=== PATIENT | male | born 1965 | race Caucasian/White ===

== ENCOUNTER 2020-09-20 17:11 | Emergency (ER) | payer OTHER, SELFPAY ==
[2020-09-20 17:22] VITALS: BP 164/92; PULSE 80; RESP 14; TEMP 37.4; O2SAT 97; BMI 44.4
--- NOTE | 2020-09-20 17:33 | XR_ITS ---
WS: [id number] Exam: XR chest 1V portable [id number] Date/Time of Exam: 09/20/2020 5:51 PM Reason For Exam: syncope No priors. The lungs appear to be fully inflated and clear. Mild cardiac enlargement. The mediastinum and bony t horax are unremarkable. XR/XR chest 1V portable [id number] IMPRESSION: 1. Mild cardiac enlargement. 2. No acute process.
--- NOTE | 2020-09-20 17:46 | ED_ITS ---
HPI - COVID General: Chief Complaint: COVID symptoms Stated Complaint: covid symptoms Time Seen by Provider: 09/20/20 17:32 Triage information: Has fever, cough or shortness of breath . Exposure to COVID + person last 14 days History of Present Illness: HPI Narrative: 55-year-old male patient presents to the emergency department with chest pain, recent positive Covid test. He has history of diabetes, hypertension, hyperlipidemia. Primary care providers [facility] here in [place]. He reports Covid symptoms x8 days, onset of chest pain yesterday. CP present with and without cough. Reports cough makes it worse. Reports continued fever, low-grade. Documented temperature 100.4. He reports nausea. Reports chest pain is located in the center of his chest. Reports cough is somewhat productive. MD complaint: known COVID positive Prior covid testing: yes, results known ([facility], positive results) Prior testing date: 09/16/20 COVID 19 common symptoms: positive fever(s), chills, cough, productive cough, dyspnea, fatigue, headache(s), loss of sense of smell and/or taste, nasal congestion and nausea; negative throat pain or vomiting COVID 19 other sytmptoms: positive chest pressure and chest pain; negative confusion Onset (ago): day(s) (2) Pertinent comorbid conditions: diabetes, hypertension and obesity Treatment prior to arrival: other (Gabapentin) COVID Results: No Data to Display Review of Systems General: Reports: 10 or more systems reviewed and unremarkable except in HPI and below Const: Reports: fever(s), chills, change in appetite, fatigue and malaise Eyes: Denies: blurry vision or eye redness ENMT: Reports: nasal congestion; Denies: throat pain, dental pain or disequilibrium Card: Reports: chest pain and dyspnea on exertion Resp: Reports: dyspnea, productive cough and chest congestion GI: Reports: nausea; Denies: vomiting or pain on defecation : Denies: difficulty urinating, dysuria, nocturia or urinary incontinence Musc: Denies: neck pain or back pain Skin/Breast: Denies: rash or pruritus Neuro: Reports: headache(s); Denies: difficulty walking or confusion Srinath/Lymph: Denies: easy bruising Physical Exam Const: COMMON NORMALS: no acute distress, patient oriented x3 and alert GENERAL APPEARANCE: cooperative, well hydrated and other (Appears not feeling well) NUTRITIONAL APPEARANCE: overweight ORIENTATION/CONSCIOUSNESS: Yes awake, Yes oriented to person, Yes oriented to place and Yes oriented to time HENMT: COMMON NORMALS: normocephalic, Normal external nose present and moist oral mucous membranes HEAD & SCALP: normocephalic NOSE: Normal external nose present Eye: COMMON NORMALS: Equal, round and reactive pupils present and EOMs intact bilaterally GENERAL EYE: appearance normal, both eyes and all related structures PUPIL: Yes Equal, round and reactive pupils present Neck/C-Spine: COMMON NORMALS: full ROM and no lymphadenopathy GENERAL: Yes normal visual inspection and Yes trachea midline CERVICAL SPINE: Yes cervical ROM normal Lymph: LYMPHATIC: no lymphadenopathy noted Chest: COMMONS NORMALS: normal inspection of the chest Resp: COMMON NORMALS: normal respiratory effort and clear to auscultation bilaterally AUSCULTATION: clear to auscultation bilaterally Cardio: COMMON NORMALS: regular rhythm, S1 normal heart sound present, S2 normal heart sound present and Peripheral pulses 2+ throughout RHYTHM: regular rhythm HEART SOUNDS: S1 normal heart sound present and S2 normal heart sound present PERIPHERAL PULSES: Peripheral pulses 2+ throughout GI: COMMON NORMALS: Normal to inspection, nondistended, normoactive bowel sounds present, Soft to palpation and non-tender INSPECTION: Yes normal to inspection PALPATION: Yes Soft to palpation : COMMON NORMALS: Yes no CVA tenderness BLADDER/KIDNEY EXAM: Yes no CVA tenderness Back/Pelvis: COMMON NORMALS: no CVA tenderness and thoracic and lumbar spine normal to inspection Extremity: COMMON NORMALS: normal to inspection and capillary refill normal Neuro: COMMON NORMALS: patient oriented x3 and no focal motor deficits SENSORIUM/ORIENTATION: Yes alert, Yes oriented to person, Yes oriented to place and Yes oriented to time Psych: COMMON NORMALS: mental status grossly normal, Normal thought process present and cooperative ACTIVITY/MOTOR BEHAVIOR: Yes appropriate eye contact THOUGHT PROCESS: Normal thought process present Skin: COMMON NORMALS: no rashes or lesions noted and turgor normal GENERAL SKIN EXAM: no rashes or lesions noted and turgor normal Course Vital Signs: Vital signs: Vital Signs Temperature 99.4 F 09/20/20 17:22 Pulse Rate 77 09/20/20 20:02 Respiratory Rate 15 09/20/20 20:02 Blood Pressure 162/99 11/16/20 20:02 Pulse Oximetry 93 09/20/20 20:02 MDM - COVID Differential Diagnosis: Differential diagnosis: Likely COVID 19, pulmonary embolism and NSTEMI/STEMI Lab Data: Labs: Lab Results 09/20/20 09/20/20 09/20/20 Range/Units 18:08 18:08 18:08 WBC 6.3 (4.0-10.0) 10^3/ uL RBC 5.46 H (4.1-5.3) 10^6/u L Hgb 14.5 (11.7-16.6) g/dL Hct 45.0 (42.0-52.0) % MCV 82.4 (80-94) fL MCH 26.6 L (28.0-34.0) pg MCHC 32.2 (30.0-36.0) g/dL RDW 14.2 (12.1-15.1) % Plt Count 277 (130-400) 10^3/c mm MPV 9.1 (7.4-10.4) fL Neut % (Auto) 51.0 % Lymph % (Auto) 38.6 % Harmon % (Auto) 8.4 % Eos % (Auto) 1.0 % Baso % (Auto) 0.5 % Neut # (Auto) 3.22 (1.8-7.7) 10^3/u L Lymph # (Auto) 2.4 (0.8-4.8) 10^3/u L Harmon # (Auto) 0.5 (0.2-0.9) 10^3/u L Eos # (Auto) 0.1 (0.0-0.8) 10^3/u L Baso # (Auto) 0.0 (0.0-0.1) 10^3/u L Nucleated RBC % (a uto) 0 % Nucleated RBCs # 0.0 /100WBC D-Dimer 0.43 (0-0.59) ug/mIFE U Sodium 139 (136-145) mmol/L Potassium 3.4 L (3.5-5.1) mmol/L Chloride 99 (98-107) mmol/L Carbon Dioxide 29 (22-29) mmol/L Anion Gap 14.4 (5-19) BUN 13 (6-20) mg/dL Creatinine 0.9 (0.7-1.2) mg/dL GFR Calculation 87.9 L (90-130) mL/min Glucose 110 (65-115) mg/dL Calculated Osmolal ity 289 (285-295) mOsm/k g Lactate (0.5-2.2) mmol/L Calcium 9.5 (8.5-10.5) mg/dL Total Bilirubin 0.3 (0.15-1.2) mg/dL AST 35 (0-40) U/L ALT 46 H (0-41) U/L Alkaline Phosphata se 121 (40-130) IU/L Troponin T Gen 5 n g/L (0-15) ng/L Total Protein 8.1 (6.6-8.7) g/dL Albumin 4.8 (3.5-5.2) g/dL Globulin 3.3 (1.3-4.6) g/dL 09/20/20 09/20/20 Range/Units 18:08 18:08 WBC (4.0-10.0) 10^3/ uL RBC (4.1-5.3) 10^6/u L Hgb (11.7-16.6) g/dL Hct (42.0-52.0) % MCV (80-94) fL MCH (28.0-34.0) pg MCHC (30.0-36.0) g/dL RDW (12.1-15.1) % Plt Count (130-400) 10^3/c mm MPV (7.4-10.4) fL Neut % (Auto) % Lymph % (Auto) % Harmon % (Auto) % Eos % (Auto) % Baso % (Auto) % Neut # (Auto) (1.8-7.7) 10^3/u L Lymph # (Auto) (0.8-4.8) 10^3/u L Harmon # (Auto) (0.2-0.9) 10^3/u L Eos # (Auto) (0.0-0.8) 10^3/u L Baso # (Auto) (0.0-0.1) 10^3/u L Nucleated RBC % (a uto) % Nucleated RBCs # /100WBC D-Dimer (0-0.59) ug/mIFE U Sodium (136-145) mmol/L Potassium (3.5-5.1) mmol/L Chloride (98-107) mmol/L Carbon Dioxide (22-29) mmol/L Anion Gap (5-19) BUN (6-20) mg/dL Creatinine (0.7-1.2) mg/dL GFR Calculation (90-130) mL/min Glucose (65-115) mg/dL Calculated Osmolal ity (285-295) mOsm/k g Lactate 1.1 (0.5-2.2) mmol/L Calcium (8.5-10.5) mg/dL Total Bilirubin (0.15-1.2) mg/dL AST (0-40) U/L ALT (0-41) U/L Alkaline Phosphata se (40-130) IU/L Troponin T Gen 5 n g/L 15 (0-15) ng/L Total Protein (6.6-8.7) g/dL Albumin (3.5-5.2) g/dL Globulin (1.3-4.6) g/dL Imaging Data: CXR: My impression: Questionable bilateral consolidation consistent with COVID-19 findings. Radiology interpretation pending. EKG Data: EKG 1: EKG interpretation date: 09/20/20 EKG interpretation time: 17:45 Computer generated interpretation: Sinus rhythm with sinus arrhythmia, nonspecific ST and T wave abnormality, borderline ECG COVID Results: No Data to Display Discharge Plan Discharge Patient Disposition: Home Clinical Impression: Bronchitis, COVID-19 virus infection Condition: Stable Prescriptions: No Action Flexeril 10 mg Tablet 10 mg PO PRN RF: 0 Lipitor 80 mg Tablet 40 mg PO QPM RF: 0 Chlorpheniramine Allergy 4 mg Tablet 4 mg PO QID PRN (Reason: Allergy Symptoms) RF: 0 Lamictal 200 mg Tablet 400 mg PO QAM RF: 0 metoprolol tartrate 100 mg Tablet 150 mg PO BID RF: 0 amlodipine 10 mg Tablet 10 mg PO BID RF: 0 metformin 1,000 mg Tablet 500 mg PO BID RF: 0 ibuprofen 200 mg Tablet 600 mg PO PRN RF: 0 gabapentin 300 mg Capsule 300 mg PO TID RF: 0 hydrochlorothiazide 25 mg Tablet 25 mg PO DAILY RF: 0 losartan 100 mg Tablet 100 mg PO DAILY RF: 0 Seroquel 400 mg Tablet 400 mg PO BEDTIME RF: 0 Vitamin D3 50 mcg (2,000 unit) Capsule 50 mcg PO DAILY RF: 0 empagliflozin 25 mg Tablet 12.5 mg PO QAM RF: 0 glipizide 10 mg PO BID RF: 0 Discharge Orders: Discharge Order (Routine); Ordered 09/20/20 Ordered By: Frieda Starks Referrals: Willy Marie [Primary Care Provider] - Discharge Diet: Usual diet Discharge Activity: Limit activity as instructed Patient Instructions: Acute Bronchitis (ED), Viral Syndrome (ED) Activity Restrictions/Additional Instructions: Monitor your oxygen level, home oxygen sensor has been provided, normal oxygen levels 92 to 100% If oxygen level falls 90 to 91% or lower, you will need to return to the emergency department You are to rest for the next several days, remain at home and quarantine. Avoid exertional activity. If you develop worsening chest pain, increased shortness of breath, difficulty catching your breath, return to the emergency department Continue Tylenol as needed for pain/fever Push fluids as your body will require more fluid intake due to fever and viral illness Coding Level of Care Code ED Crm Coordinator for Leticia Fwd Exam Comprehensive
[2020-09-20 17:47] VITALS: PULSE 79; RESP 20; O2SAT 96
[2020-09-20] MEDS: acetaminophen 500 mg Tablet 1000 MG PO (17:57)
[2020-09-20 18:17] LABS: Basophils % 0.5 %; Eosinophils # 0.1 10^3/uL (0.0-0.8); Hemoglobin 14.5 g/dL (11.7-16.6); Lymphocytes # 2.4 10^3/uL (0.8-4.8); Lymphocytes % 38.6 %; Mean Corpuscular HGB Conc 32.2 g/dL (30.0-36.0); Mean Corpuscular Hemoglobin 26.6 pg (28.0-34.0); Mean Corpuscular Volume 82.4 fL (80-94); Mean Platelet Volume 9.1 fL (7.4-10.4); Monocytes # 0.5 10^3/uL (0.2-0.9); Monocytes % 8.4 %; Neutrophils # 3.22 10^3/uL (1.8-7.7); Nucleated Red Blood Cells % 0 %; Platelet Count 277 10^3/cmm (130-400); Red Blood Count 5.46 10^6/uL (4.1-5.3); Red Cell Distribution Width 14.2 % (12.1-15.1); White Blood Count 6.3 10^3/uL (4.0-10.0)
[2020-09-20 18:30] LABS: D Dimer 0.43 ug/mIFEU (0-0.59)
[2020-09-20 18:33] LABS: Lactate (Lactic Acid level) 1.1 mmol/L (0.5-2.2)
[2020-09-20 18:34] LABS: Alanine Aminotransferase 46 U/L (0-41); Albumin Level 4.8 g/dL (3.5-5.2); Alkaline Phosphatase 121 IU/L (40-130); Anion Gap 14.4 (5-19); Aspartate Amino Transferase 35 U/L (0-40); Blood Urea Nitrogen 13 mg/dL (6-20); Calcium 9.5 mg/dL (8.5-10.5); Carbon Dioxide 29 mmol/L (22-29); Chloride 99 mmol/L (98-107); Globulin 3.3 g/dL (1.3-4.6); Glomerular Filtration Rate 87.9 mL/min (90-130); Glucose 110 mg/dL (65-115); Osmolality Calculated 289 mOsm/kg (285-295); Potassium 3.4 mmol/L (3.5-5.1); Sodium 139 mmol/L (136-145); Total Bilirubin 0.3 mg/dL (0.15-1.2); Total Protein 8.1 g/dL (6.6-8.7)
--- NOTE | 2020-09-20 18:43 | ECG_ITS ---
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 Measurements Intervals [place] Rate: 77 P: 33 DE: 174 QRS: 18 QRSD: 95 T: -33 QT: 303 QTc: 343 Interpretive Statements SINUS RHYTHM WITH SINUS ARRHYTHMIA NONSPECIFIC ST & T-WAVE ABNORMALITY Compared to ECG 04/01/2019 16:16:47 T-wave abnormality now present Myocardial infarct finding no longer present Electronically Signed On 09-21-2020 21:59:54 STILL OPERATOR WHISKEY by Cee Manzo M.D. [id number]
[2020-09-20 19:00] VITALS: BP 178/85; PULSE 80; RESP 17; O2SAT 95
[2020-09-20 19:40] LABS: Troponin T (5th) Once 15 ng/L (0-15)
[2020-09-20 20:02] VITALS: BP 162/99; PULSE 77; RESP 15; O2SAT 93
== END 2020-09-20 20:02 | disposition home or self-care (01) ==
PROVIDERS: Emergency Provider Nurse Practitioner Family; PCP Family Medicine
DX: U07.1 COVID-19 (principal); J40 Bronchitis, not specified as acute or chronic; Z79.84 Long term (current) use of oral hypoglycemic drugs; E11.9 Type 2 diabetes mellitus without complications; I10 Essential (primary) hypertension; E78.5 Hyperlipidemia, unspecified; E66.9 Obesity, unspecified; Z68.41 Body mass index [BMI] 40.0-44.9, adult; Z79.1 Long term (current) use of non-steroidal anti-inflammatories (NSAID)
CPT/HCPCS: 12345; 71045; 80053; 83605; 84484; 85025; 85378; 93005; 99283

== ENCOUNTER → 2022-02-15 10:30 | Outpatient (BNVA) | payer OTHER, SELFPAY | PROVIDERS: PCP Family Medicine; Visit Provider Otolaryngology | DX: K14.8 Other diseases of tongue (principal); G47.33 Obstructive sleep apnea (adult) (pediatric); E66.01 Morbid (severe) obesity due to excess calories; Z68.41 Body mass index [BMI] 40.0-44.9, adult | CPT/HCPCS: 99203 ==

== ENCOUNTER 2022-02-16 10:54 | Outpatient (CLI) | payer OTHER, SELFPAY ==
--- NOTE | 2022-02-16 14:29 | ECG_ITS ---
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 Measurements Intervals [place] Rate: 65 P: 35 HI: 161 QRS: 22 QRSD: 95 T: -7 QT: 437 QTc: 454 Interpretive Statements SINUS RHYTHM WITH SINUS ARRHYTHMIA NONSPECIFIC ST & T-WAVE ABNORMALITY Compared to ECG 09/20/2020 17:17:03 No significant changes Electronically Signed On 02-16-2022 18:13:09 CDT by Kaden De Souza M.D. [id number]
== END 2022-02-16 10:55 | disposition home or self-care (01) ==
LOC: RAD 10:55
PROVIDERS: PCP Family Medicine; Visit Provider Specialist
DX: D37.02 Neoplasm of uncertain behavior of tongue (principal); R94.31 Abnormal electrocardiogram [ECG] [EKG]
CPT/HCPCS: 93005

== ENCOUNTER 2022-06-15 12:20 | Inpatient (IN) | payer OTHER, SELFPAY ==
[2022-06-15] VITALS (16 sets, daily range): BP systolic 119–153; BP diastolic 74–104; PULSE 72–87; RESP 15–27; TEMP 36.1–37.2; O2SAT 88–96; BMI 41.5
--- NOTE | 2022-06-15 12:30 | XR_ITS ---
WS: [id number] XR chest 1V portable [id number] REASON FOR EXAM: sob FINDINGS: Moderate tortuosity of the thoracic aorta and cardiomegaly. There are diffuse reticular interstitial lung opacities in the lower lung grove. Moderate osteoarthritis in the right glenohumeral joint and significant degenerative spondylosis in t he mid and lower thoracic spine. XR/XR chest 1V portable [id number] IMPRESSION: Abnormalities in the lungs are of unknown chronicity but most likely acute/suba cute. Congestive heart failure versus pneumonitis.
--- NOTE | 2022-06-15 12:43 | ED_ITS ---
HPI - COVID General: Chief Complaint: COVID symptoms Stated Complaint: low o2 Time Seen by Provider: 06/15/22 12:29 Source: patient Mode of arrival: ambulatory Limitations: no limitations Triage information: No fever, cough or shortness of breath . No known COVID + exposure last 14 days History of Present Illness: 56-year-old male of the last 2 to 3 weeks has been having cough congestion along with slight fevers. has been having some increasing shortness of breath as well. He states he was seen at the [place] [facility] today and his pulse ox was in the upper 80s they sent him here. He is resting comfortably in the bed in no distress currently denies any chest pain denies any vomiting or diarrhea. COVID 19 common symptoms: positive non-productive cough and dyspnea; negative fever(s), chills, body aches, headache(s), throat pain, nausea, vomiting or diarrhea COVID 19 other sytmptoms: negative chest pain COVID Results: SARS-CoV-2 Antigen (Rapid) Negative (Negative) 06/15/22 23:59 Review of Systems Const: Denies: fever(s), chills, body aches or change in appetite Eyes: Denies: blurry vision or eye discomfort ENMT: Denies: throat pain or dental pain Card: Denies: chest pain Resp: Reports: dyspnea and non-productive cough GI: Denies: abdominal pain, nausea, vomiting or diarrhea : Denies: dysuria Musc: Denies: neck pain or back pain Skin/Breast: Denies: rash Neuro: Denies: headache(s) Psych: Denies: depression Srinath/Lymph: Denies: easy bruising All/Imm: Denies: urticaria PFSH ED PFSH: Medical History Allergic rhinitis Chronic pain Diabetes mellitus GERD (gastroesophageal reflux disease) Sleep apnea Tongue lesion Surgical History History of hernia repair Family History Other Diabetes Hypertension Social History Smoking and tobacco status: never smoked Physical Exam Const: COMMON NORMALS: no acute distress, patient oriented x3 and healthy appearing HENMT: COMMON NORMALS: normocephalic and atraumatic HEAD & SCALP: normoceph alic and atraumatic Eye: COMMON NORMALS: Equal, round and reactive pupils present and EOMs intact bilaterally PUPIL: Yes Equal, round and reactive pupils present Neck/C-Spine: COMMON NORMALS: full ROM and supple Chest: COMMONS NORMALS: normal inspection of the chest and normal palpation of entire chest wall Resp: COMMON NORMALS: normal respiratory effort, No retractions and No use of accessory muscles AUSCULTATION: rales Cardio: COMMON NORMALS: regular rate, regular rhythm and No murmurs present (Cardio) RATE: regular rate RHYTHM: regular rhythm GI: COMMON NORMALS: Normal to inspection, nondistended, normoactive bowel sounds present, Soft to palpation, non-tender and no masses PALPATION: Yes Soft to palpation Extremity: COMMON NORMALS: normal to inspection and full ROM Neuro: COMMON NORMALS: patient oriented x3, moves all extremities and no focal motor deficits Psych: COMMON NORMALS: mental status grossly normal, Normal thought process present and cooperative THOUGHT PROCESS: Normal thought process present Skin: COMMON NORMALS: no rashes or lesions noted and no wounds GENERAL SKIN EXAM: no rashes or lesions noted Course Vital Signs: Vital signs: Vital Signs Temperature 97.0 F L 06/15/22 12:24 Pulse Rate 78 06/15/22 14:35 Respiratory Rate 16 06/15/22 14:27 Blood Pressure 139/99 06/15/22 12:27 Pulse Oximetry 90 06/15/22 14:27 Oxygen Delivery Me thod 06/15/22 14:27 Oxygen Flow Rate 3 06/15/22 14:27 MDM - COVID Medical Decision Making Patient presents here with pneumonia likely causing his shortness of breath he is hypoxic here as well I spoke to the hospitalist and will admit patient started on IV antibiotics he has been stable while here Lab Data : 06/15/22 12:50 06/15/22 12:50 Radiology Impressions Chest X-Ray 06/15/22 12:30 IMPRESSION: Abnormalities in the lungs are of unknown chronicity but most likely acute/subacute. Congestive heart failure versus pneumonitis. Chest CTA 06/15/22 13:23 IMPRESSION: 1. No pulmonary embolism through the segmental branches. 2. LEFT lower lobe pneumonia. 3. Additional areas of groundglass attenuation are probably from edema or pneumonitis. 4. Reactive lymphadenopathy. 5. Hepatic steatosis. Laboratory Results WBC 17.8 10^3/uL (4.0-10.0) H 06/15/22 12:50 RBC 5.09 10^6/uL (4.1-5.3) 06/15/22 12:50 Hgb 14.1 g/dL (11.7-16.6) 06/15/22 12:50 Hct 42.0 % (42.0-52.0) 06/15/22 12:50 MCV 82.5 fl (80-94) 06/15/22 12:50 MCH 27.7 pg (28.0-34.0) L 06/15/22 12:50 MCHC 33.6 g/dL (30.0-36.0) 06/15/22 12:50 RDW 15.5 % (12.1-15.1) H 06/15/22 12:50 Plt Count 528 10^3/cmm (130-400) H 06/15/22 12:50 MPV 8.4 fL (7.4-10.4) 06/15/22 12:50 Neut % (Auto) 75.5 % 06/15/22 12:50 Lymph % (Auto) 15.9 % 06/15/22 12:50 [place] % (Auto) 6.0 % 06/15/22 12:50 Eos % (Auto) 0.7 % 06/15/22 12:50 Baso % (Auto) 0.3 % 06/15/22 12:50 Neut # (Auto) 13.46 10^3/uL (1.8-7.7) H 06/15/22 12:50 Lymph # (Auto) 2.8 10^3/uL (0.8-4.8) 06/15/22 12:50 [place] # (Auto) 1.1 10^3/uL (0.2-0.9) H 06/15/22 12:50 Eos # (Auto) 0.1 10^3/uL (0.0-0.8) 06/15/22 12:50 Baso # (Auto) 0.1 10^3/uL (0.0-0.1) 06/15/22 12:50 Nucleated RBC % (auto) 0.1 % 06/15/22 12:50 Nucleated RBCs # 0.0 /100WBC 06/15/22 12:50 D-Dimer 1.16 ug/mIFEU (0-0.59) H 06/15/22 12:50 Sodium 140 mmol/L (136-145) 06/15/22 12:50 Potassium 3.7 mmol/L (3.5-5.1) 06/15/22 12:50 Chloride 99 mmol/L (98-107) 06/15/22 12:50 Carbon Dioxide 28 mmol/L (22-29) 06/15/22 12:50 Anion Gap 16.7 (5-19) 06/15/22 12:50 BUN 21 mg/dL (6-20) H 06/15/22 12:50 Creatinine 0.9 mg/dL (0.7-1.2) 06/15/22 12:50 GFR Calculation 87.6 mL/min (90-130) L 06/15/22 12:50 Glucose 67 mg/dL (65-115) 06/15/22 12:50 Calculated Osmolality 291 mOsm/kg (285-295) 06/15/22 12:50 Calcium 9.7 mg/dL (8.5-10.5) 06/15/22 12:50 Total Bilirubin 0.5 mg/dL (0.15-1.2) 06/15/22 12:50 AST 17 U/L (0-40) 06/15/22 12:50 ALT 19 U/L (0-41) 06/15/22 12:50 Alkaline Phosphatase 124 IU/L (40-130) 06/15/22 12:50 NT-Pro-B Natriuret Pep 59 pg/mL (0-125) 06/15/22 12:50 Total Protein 8.4 g/dL (6.6-8.7) 06/15/22 12:50 Albumin 4.2 g/dL (3.5-5.2) 06/15/22 12:50 Globulin 4.2 g/dL (1.3-4.6) 06/15/22 12:50 SARS-CoV-2 Ag (Rapid) Negative (Negative) 06/15/22 Unknown SARS-CoV-2 Antigen (Rapid) Negative (Negative) 08/11/22 23:59 EKG Data EKG 1: I personally reviewed and interpreted this EKG as follows: EKG interpretation date: 06/15/22 EKG interpretation time: 12:47 Interpretation: nsr hr [address] or t wave abnormalities qrs 98 qtc 431 Discharge Plan Discharge Patient Disposition: Admitted As Inpatient Clinical Impression: Pneumonia, Acute respiratory failure with hypoxia Condition: Stable Coding Level of Care Code ED Resource Protection Specialist for Chg Fwd Exam Comprehensive
--- NOTE | 2022-06-15 12:47 | ECG_ITS ---
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 Measurements Intervals [place] Rate: 75 P: 36 MD: 168 QRS: 34 QRSD: 98 T: 21 QT: 402 QTc: 451 Interpretive Statements SINUS RHYTHM WITH SINUS ARRHYTHMIA NONSPECIFIC ST & T-WAVE ABNORMALITY Compared to ECG 02/16/2022 11:55:55 No significant changes Electronically Signed On 06-15-2022 18:38:58 CDT by Cee Manzo M.D. [id number]
[2022-06-15 12:59] LABS: Basophils # 0.1 10^3/uL (0.0-0.1); Basophils % 0.3 %; Eosinophils # 0.1 10^3/uL (0.0-0.8); Eosinophils % 0.7 %; Hemoglobin 14.1 g/dL (11.7-16.6); Lymphocytes # 2.8 10^3/uL (0.8-4.8); Lymphocytes % 15.9 %; Mean Corpuscular HGB Conc 33.6 g/dL (30.0-36.0); Mean Corpuscular Hemoglobin 27.7 pg (28.0-34.0); Mean Corpuscular Volume 82.5 fl (80-94); Mean Platelet Volume 8.4 fL (7.4-10.4); Monocytes # 1.1 10^3/uL (0.2-0.9); Neutrophils # 13.46 10^3/uL (1.8-7.7); Neutrophils % 75.5 %; Nucleated Red Blood Cells % 0.1 %; Platelet Count 528 10^3/cmm (130-400); Red Blood Count 5.09 10^6/uL (4.1-5.3); Red Cell Distribution Width 15.5 % (12.1-15.1); White Blood Count 17.8 10^3/uL (4.0-10.0)
--- NOTE | 2022-06-15 13:00 | PC.NURSE ---
PT PLACED ON CONTINUOUS NIBP, SPO2, AND CM
--- NOTE | 2022-06-15 13:04 | PC.NURSE ---
PT O2 SATURATION NOTED TO BE 88%. PLACED ON 3L WITH NO IMPROVEMENT. INCREASED TO 4L. WILL REASSESS NEED.
[2022-06-15 13:14] LABS: D Dimer 1.16 ug/mIFEU (0-0.59)
[2022-06-15 13:22] LABS: SARS Covid-2 Antigen Negative (Negative)
[2022-06-15 13:22] LABS: Alanine Aminotransferase 19 U/L (0-41); Albumin Level 4.2 g/dL (3.5-5.2); Alkaline Phosphatase 124 IU/L (40-130); Anion Gap 16.7 (5-19); Aspartate Amino Transferase 17 U/L (0-40); Blood Urea Nitrogen 21 mg/dL (6-20); Calcium 9.7 mg/dL (8.5-10.5); Carbon Dioxide 28 mmol/L (22-29); Chloride 99 mmol/L (98-107); Globulin 4.2 g/dL (1.3-4.6); Glomerular Filtration Rate 87.6 mL/min (90-130); Glucose 67 mg/dL (65-115); Osmolality Calculated 291 mOsm/kg (285-295); Potassium 3.7 mmol/L (3.5-5.1); Sodium 140 mmol/L (136-145); Total Bilirubin 0.5 mg/dL (0.15-1.2); Total Protein 8.4 g/dL (6.6-8.7)
--- NOTE | 2022-06-15 13:23 | CT_ITS ---
WS: [id number] CT CHEST ANGIOGRAPHY WITH REFORMATS HISTORY: sob TECHNIQUE: Contiguous axial images are obtained through the chest during arterial injection of intrav enous contrast. Images are reconstructed to evaluate the pulmonary arteries. MIP imaging also reviewe d. All CT scans at [facility] use at least one of these dose optimization techniques: automat ed exposure control; mA and/or kV adjustment per patient size (includes targeted exams where dose is matched to clinical indication); or iterative reconstruction. CONTRAST: Omnipaque 350; 180 mL IV. DLP: 1028.91 mGy.cm COMPARISON: None available. Suboptimal opacification of the pulmonary arteries. No central pulmonary embolism. Through the lobar branches and the proximal segmental branches no filling defect or emboli is identified. No RIGHT hear t strain. Heart is normal size. Very minimal atherosclerosis aorta with no aneurysm. Normal size pulm onary artery. Bilateral pulmonary opacifications, greatest distribution in the lower lung grove. LEFT lower lobe p neumonia. Additional groundglass attenuation in the upper lobes and RIGHT lower lobe. No pericardial effusion. No pleural effusion. Mediastinal and hilar lymph nodes are enlarged and number is increased . The largest lymph nodes at the RIGHT hilum measure up to 13 mm. Adenopathy extends interlobar along the RIGHT lower and LEFT lower lobe pulmonary arteries. Hepatic steatosis. No adrenal mass is visualized. Mild straightening of the normal thoracic kyphosis. CT/CT angio chest PE protcl [id number] IMPRESSION: 1. No pulmonary embolism through the segmental branches. 2. LEFT lower lobe pneumonia. 3. Additional areas of groundglass attenuation are probably from edema or pneu monitis. 4. Reactive lymphadenopathy. 5. Hepatic steatosis.
[2022-06-15 13:31] LABS: NT Pro B Type Natriuretic Pept 59 pg/mL (0-125)
[2022-06-15] MEDS: iohexol 350 mg/mL 100 mL Btl IV ×2 (14:13→14:27)
[2022-06-15] MEDS: azithromycin 500 MG in sodium chloride 0.9% 250 ML 250 MG IV (14:15)
[2022-06-15] MEDS: ipratropium-albuterol 3 mL Neb INHALATION ×2 (14:23→20:57)
[2022-06-15] MEDS: cefTRIAXone 1,000 MG in sodium chloride 0.9% (plus) 50 ML 100 MG IV (15:30)
--- NOTE | 2022-06-15 19:32 | P.HP_ITS ---
Providers/Chief Complaint Admitting Physician: Marcela Garcias MD Primary Care Provider: Willy Marie Chief Complaint: low o2 History of Present Illness Daniel Sheffield is a 56 year old male presenting to the hospital today with 2 weeks of worsening cough, expectoration, shortness of breath. Today he noted his oxygen saturation to be in the low 80s and presented into the emergency room. He has a new oxygen requirement of 4 L/min. States that he was in his usual state of health until about 2 weeks ago. Patient has a verrucous growth on his left side of the tongue for which she has been following with ENT. This growth has been excised multiple times times, reportedly benign on biopsy, however has grown recently in size. He is pending evaluation with ENT at [facility]. Patient states that this growth has been obstructive and chunks of it have been falling off. He suspects that he may have aspirated once or chunk prior to onset of all of his symptoms. He has had fever and chills at home. He was tested for COVID-19 at the [facility] recently. Results are awaited. Upon presentation to the ER he is noted to have leukocytosis. CTA of the chest showed evidence of pneumonia. No PE was identified. He denies any chest pain or palpitations. Review of Systems General: Reports: 10 or more systems reviewed and unremarkable except in HPI and below Const: Denies: fever(s), chills or body aches Eyes: Denies: change in vision, blurry vision or photophobia ENMT: Reports: hoarseness; Denies: throat pain, enlarged tonsils, odynophagia or nasal congestion Card: Denies: chest pain, palpitations, irregular heart rhythm, edema, swelling of feet/ankles, lightheadedness, pre-syncope, dyspnea on exertion or orthopnea Resp: Denies: dyspnea, productive cough, non-productive cough, wheezing, stridor, pain on inspiration, change in phlegm color, hemoptysis or chest congestion GI: Denies: abdominal pain, nausea, vomiting, hematemesis, coffee ground emesis, dysphagia, heartburn, diarrhea, constipation, GI cramping, change in stool character, hematochezia or melena : Denies: flank pain, dysuria, urinary frequency, urinary urgency, urinary hesitancy or hematuria Musc: Denies: neck pain, back pain, extremity pain, joint swelling, joint warmth or deformity Neuro: Denies: headache(s), numbness in extremities, weakness in extremities, sensory changes, difficulty walking, frequent falls, dizziness, vertigo, behavioral changes, Slurred speech present or seizure-like activity Psych: Denies: anxiety, depression, suicidal ideation or homicidal ideation Endo: Denies: polyuria, polydipsia, tired all the time, cold intolerance or hot flashes Srinath/Lymph: Denies: easy bruising or easy bleeding Medications/Allergies Home Medications Medication Instructions Recorded Confirmed Last Taken Type amlodipine 10 mg tablet 10 mg PO DAILY 09/20/20 06/15/22 09/20/20 History atorvastatin 80 mg tablet (Lipitor) 40 mg PO QPM 09/20/20 06/15/22 09/19/20 History cholecalciferol (vitamin D3) 50 50 mcg PO DAILY 09/20/20 06/15/22 Unknown History mcg (2,000 unit) capsule (Vitamin D3) empagliflozin 25 mg tablet 12.5 mg PO DAILY 09/20/20 06/15/22 Unknown History gabapentin 300 mg capsule 300 mg PO BEDTIME 09/20/20 06/15/22 Unknown History hydrochlorothiazide 25 mg tablet 25 mg PO DAILY 09/20/20 06/15/22 09/20/20 History lamotrigine 200 mg tablet 400 mg PO QAM 09/20/20 06/15/22 09/20/20 History (Lamictal) losartan 100 mg tablet 100 mg PO DAILY 09/20/20 06/15/22 Unknown History metformin 1,000 mg tablet 500 mg PO BID 09/20/20 06/15/22 09/20/20 History metoprolol tartrate 100 mg tablet 150 mg PO BID 09/20/20 06/15/22 09/20/20 History quetiapine 400 mg tablet (Seroquel) 600 mg PO BEDTIME 09/20/20 06/15/22 Unknown History glipizide 10 mg tablet 10 mg PO BID 02/15/22 06/15/22 Unknown History acetaminophen 500 mg tablet 1,000 mg PO Q6H PRN Pain 06/15/22 06/15/22 Unknown History hydroxyzine HCl 50 mg tablet 50 mg PO BID PRN Allergy Symptoms 06/15/22 06/15/22 Unknown History Allergies Allergy/AdvReac Type Severity Reaction Status Date / Time meperidine [From Demerol] Allergy ADR-Halluci Verified 06/15/22 12:27 nating PFSH Acute PFSH: Medical History Allergic rhinitis Chronic pain Diabetes mellitus GERD (gastroesophageal reflux disease) Sleep apnea Tongue lesion Surgical History History of hernia repair Family History Other Diabetes Hypertension Social History Smoking and tobacco status: never smoked Vitals/I&O/Wt Last Vital Signs Temp 97.0 F L 06/15/22 12:24 Pulse 80 06/15/22 17:00 Resp 23 H 06/15/22 17:00 BP 153/92 06/15/22 17:00 Pulse Ox 91 06/15/22 17:00 O2 Del Method 06/15/22 17:00 O2 Flow Rate 5 06/15/22 17:00 06/15/22 06/15/22 06/15/22 06:59 14:59 22:59 Intake Total 300 / 300 Balance 300 / 300 Weight last 48 hrs Weight 131.542 kg Weight 131.542 kg Physical Exam Narrative: General: No acute distress, AO x3, he is tachypneic in conversation HEENT: PERRLA, pupils bilaterally equal and reactive, pallors not present Chest: Normal vesicular breath sounds, no added sounds, equal good air entry bilaterally CVS: S1-S2 regular, no murmurs, no tachycardia, no gallops, no rubs Abdomen: Soft, nontender, no organomegaly, bowel sounds present Neuro: No focal deficits, no facial deformity, AO x3, power 5/5 in all limbs Extremities: No edema clubbing cyanosis Data : 06/16/22 04:55 06/16/22 04:55 Other Labs: Radiology Impressions Chest X-Ray 06/15/22 12:30 IMPRESSION: Abnormalities in the lungs are of unknown chronicity but most likely a cute/subacute. Congestive heart failure versus pneumonitis. Chest CTA 06/15/22 13:23 IMPRESSION: 1. No pulmonary embolism through the segmental branches. 2. LEFT lower lobe pneumonia. 3. Additional areas of groundglass attenuation are probably from edema or pneum onitis. 4. Reactive lymphadenopathy. 5. Hepatic steatosis. Micro: Microbiology 06/15/22 13:15 Blood Culture - Preliminary Blood SPECIMEN COLLECTED 06/15/22 13:15 Blood Culture - Preliminary Blood SPECIMEN COLLECTED A&P Assessment and plan (1) Pneumonia: Admit to [facility] given the left lower lobe pneumonia and hypoxic respiratory failure, new oxygen requirement. CTA of the chest with left lower lobe pneumonia. Empiric treatment with ceftriaxone and azithromycin for community-acquired pneumonia Check sputum gram stain and culture, urine Legionella and bacterial antigens. Supplemental O2 to keep saturation greater than 92% DuoNeb and budesonide inhalation. CPAP for nighttime use for obstructive sleep apnea. Status: Acute Qualifiers: Laterality: left Lung location: lower lobe of lung Pneumonia type: due to unspecified organism Qualified Code(s): J18.9 - Pneumonia, unspecified organism (2) Acute respiratory failure with hypoxia: Status: Acute (3) Obstructive sleep apnea (adult) (pediatric): Status: Acute (4) Tongue lesion: He is plan to follow-up with [facility] ENT for further evaluation. Lesion has been biopsied multiple times with Dr. Pollard in the past, reportedly benign, recurs after excision. 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
[2022-06-15 19:51] LABS: Troponin T (5th) Once 16 ng/L (0-15)
[2022-06-15] MEDS: gabapentin 300 mg Capsule PO (20:41)
[2022-06-15] MEDS: enoxaparin 40 mg/0.4 mL Syringe SUBCUT (20:41)
[2022-06-15] MEDS: quetiapine 300 mg Tablet 600 MG PO (20:41)
[2022-06-15 20:45] LABS: Influenza A by IFA Negative (Negative); Influenza B by IFA Negative (Negative)
[2022-06-15] MEDS: budesonide 0.5 mg/2 mL Neb INHALATION (20:57)
[2022-06-15 21:02] LABS: Glucose Point of Care 83 mg/dL (70-110)
[2022-06-16] VITALS (12 sets, daily range): BP systolic 107–136; BP diastolic 71–84; PULSE 75–88; RESP 12–20; TEMP 36.7–37.4; O2SAT 87–97
[2022-06-16 05:06] LABS: Basophils % 0.2 %; Eosinophils # 0.2 10^3/uL (0.0-0.8); Eosinophils % 1.5 %; Hematocrit 38.8 % (42.0-52.0); Hemoglobin 13.3 g/dL (11.7-16.6); Lymphocytes # 1.9 10^3/uL (0.8-4.8); Lymphocytes % 14.5 %; Mean Corpuscular HGB Conc 34.3 g/dL (30.0-36.0); Mean Corpuscular Volume 84.5 fl (80-94); Mean Platelet Volume 8.3 fL (7.4-10.4); Monocytes # 0.8 10^3/uL (0.2-0.9); Monocytes % 6.1 %; Neutrophils # 10.17 10^3/uL (1.8-7.7); Neutrophils % 76.1 %; Nucleated Red Blood Cells % 0 %; Platelet Count 449 10^3/cmm (130-400); Red Blood Count 4.59 10^6/uL (4.1-5.3); Red Cell Distribution Width 16.4 % (12.1-15.1); White Blood Count 13.4 10^3/uL (4.0-10.0)
[2022-06-16] MEDS: lamoTRIgine 100 mg Tablet 400 MG PO (05:24)
[2022-06-16 05:30] LABS: Alanine Aminotransferase 16 U/L (0-41); Albumin Level 3.6 g/dL (3.5-5.2); Alkaline Phosphatase 116 IU/L (40-130); Anion Gap 18.6 (5-19); Aspartate Amino Transferase 14 U/L (0-40); Blood Urea Nitrogen 22 mg/dL (6-20); C Reactive Protein 76.7 mg/L (0.0-4.9); Calcium 9.6 mg/dL (8.5-10.5); Carbon Dioxide 25 mmol/L (22-29); Chloride 99 mmol/L (98-107); Globulin 3.5 g/dL (1.3-4.6); Glomerular Filtration Rate 69.5 mL/min (90-130); Glucose 85 mg/dL (65-115); Osmolality Calculated 291 mOsm/kg (285-295); Potassium 3.6 mmol/L (3.5-5.1); Sodium 139 mmol/L (136-145); Total Bilirubin 0.4 mg/dL (0.15-1.2); Total Protein 7.1 g/dL (6.6-8.7)
[2022-06-16 06:42] LABS: Glucose Point of Care 89 mg/dL (70-110)
[2022-06-16] MEDS: budesonide 0.5 mg/2 mL Neb INHALATION ×2 (08:18→20:25)
[2022-06-16] MEDS: ipratropium-albuterol 3 mL Neb INHALATION ×3 (08:18→20:25)
[2022-06-16] MEDS: hydroCHLOROthiazide 25 mg Tablet PO (08:52)
[2022-06-16] MEDS: pantoprazole DR 40 mg Tablet PO (08:52)
[2022-06-16] MEDS: losartan 50 mg Tablet 100 MG PO (08:52)
[2022-06-16] MEDS: metoprolol tartrate 50 mg Tablet 150 MG PO ×2 (08:52→17:30)
[2022-06-16] MEDS: amlodipine 10 mg Tablet PO (08:52)
[2022-06-16 11:04] LABS: Glucose Point of Care 123 mg/dL (70-110)
[2022-06-16] MEDS: azithromycin 500 MG in sodium chloride 0.9% 250 ML 250 MG IV (14:23)
[2022-06-16] MEDS: cefTRIAXone 1,000 MG in sodium chloride 0.9% (plus) 50 ML 100 MG IV (15:19)
--- NOTE | 2022-06-16 15:26 | P.PN_ITS ---
Subjective Subjective: Patient feels symptomatically better today. States that the nebulizers and supplemental oxygen is helping him. [facility]. Leukocytosis trending down.Currently on 4 L/min supplemental O2. Vitals/I&O/Wt Last Vital Signs Temp 98.9 F 06/16/22 12:00 Pulse 79 06/16/22 12:00 Resp 17 06/16/22 12:00 BP 122/73 06/16/22 12:00 Pulse Ox 87 L 06/16/22 12:00 O2 Del Method 06/16/22 12:00 O2 Flow Rate 4 06/16/22 08:13 06/16/22 06/16/22 06/16/22 06:59 14:59 22:59 Intake Total 240 / 240 Output Total 300 / 500 300 / 300 Balance -300 / 300 -60 / -60 Weight last 48 hrs Weight 131.542 kg Weight 131.542 kg Physical Exam Narrative: General: No acute distress, AO x3 HEENT: PERRLA, pupils bilaterally equal and reactive, pallors not present Chest: Normal vesicular breath sounds, no added sounds, equal good air entry bi laterally CVS: S1-S2 regular, no murmurs, no tachycardia, no gallops, no rubs Abdomen: Soft, nontender, no organomegaly, bowel sounds present Neuro: No focal deficits, no facial deformity, AO x3, power 5/5 in all limbs Data : 06/16/22 04:55 06/16/22 04:55 Micro: Microbiology 06/15/22 13:15 Blood Culture - Preliminary Blood NEGATIVE TO DATE 06/15/22 13:15 Blood Culture - Preliminary Blood NEGATIVE TO DATE 06/15/22 20:00 Legionella Urinary Antigen - Final Urine,Voided Bacterial Antigens - Final A&P Assessment and plan (1) Pneumonia: Patient currently admitted for community-acquired pneumonia. Continue empiric antibiotic treatment with ceftriaxone and azithromycin. His oxygen requirements today at 5 Giurgius per minute Continue ventilation with DuoNebs, budesonide Supplemental O2 to keep saturation greater than 92%. Monitor leukocytosis. Status: Acute Qualifiers: Laterality: left Lung location: lower lobe of lung Pneumonia type: due to unspecified organism Qualified Code(s): J18.9 - Pneumonia, unspecified organism (2) Acute respiratory failure with hypoxia: Status: Acute (3) Obstructive sleep apnea (adult) (pediatric): Status: Acute Attestations Medical Necessity Statement*: Needs continued admission for IV antibiotics, hypoxic respiratory failure. Coding Level of Care Code Acute Movie Extra for [facility] Fwd Diagnoses Pneumonia J18.9 Laterality: left Lung location: lower lobe of lung Pneumonia type: due to unspecified organism Acute respiratory failure with hypoxia J96.01 Obstructive sleep apnea (adult) (pediatric) G47.33
[2022-06-16 17:11] LABS: Glucose Point of Care 145 mg/dL (70-110)
[2022-06-16] MEDS: atorvastatin 40 mg Tablet PO (17:30)
[2022-06-16 20:58] LABS: Glucose Point of Care 115 mg/dL (70-110)
[2022-06-16] MEDS: gabapentin 300 mg Capsule PO (21:02)
[2022-06-16] MEDS: enoxaparin 40 mg/0.4 mL Syringe SUBCUT (21:02)
[2022-06-16] MEDS: quetiapine 300 mg Tablet 600 MG PO (21:02)
[2022-06-17 04:00] VITALS: BP 124/78; PULSE 70; RESP 12; TEMP 36.5; O2SAT 94
[2022-06-17 05:13] LABS: Basophils # 0.1 10^3/uL (0.0-0.1); Basophils % 0.5 %; Eosinophils # 0.3 10^3/uL (0.0-0.8); Eosinophils % 2.9 %; Hematocrit 40.8 % (42.0-52.0); Hemoglobin 13.2 g/dL (11.7-16.6); Lymphocytes # 2.5 10^3/uL (0.8-4.8); Lymphocytes % 26.5 %; Mean Corpuscular HGB Conc 32.4 g/dL (30.0-36.0); Mean Corpuscular Hemoglobin 26.9 pg (28.0-34.0); Mean Corpuscular Volume 83.1 fl (80-94); Mean Platelet Volume 8.4 fL (7.4-10.4); Monocytes # 0.6 10^3/uL (0.2-0.9); Monocytes % 6.6 %; Neutrophils # 5.91 10^3/uL (1.8-7.7); Neutrophils % 61.8 %; Nucleated Red Blood Cells % 0 %; Platelet Count 487 10^3/cmm (130-400); Red Blood Count 4.91 10^6/uL (4.1-5.3); Red Cell Distribution Width 15.7 % (12.1-15.1); White Blood Count 9.6 10^3/uL (4.0-10.0)
[2022-06-17 05:42] LABS: Alanine Aminotransferase 14 U/L (0-41); Albumin Level 3.5 g/dL (3.5-5.2); Alkaline Phosphatase 101 IU/L (40-130); Anion Gap 14.4 (5-19); Aspartate Amino Transferase 15 U/L (0-40); Blood Urea Nitrogen 24 mg/dL (6-20); Calcium 9.5 mg/dL (8.5-10.5); Carbon Dioxide 28 mmol/L (22-29); Chloride 102 mmol/L (98-107); Creatinine Clr Calc Pharmacy 113.8254; Globulin 3.5 g/dL (1.3-4.6); Glomerular Filtration Rate 77.6 mL/min (90-130); Glucose 118 mg/dL (65-115); Osmolality Calculated 297 mOsm/kg (285-295); Potassium 3.4 mmol/L (3.5-5.1); Sodium 141 mmol/L (136-145); Total Bilirubin 0.3 mg/dL (0.15-1.2)
[2022-06-17 05:59] LABS: HIV 1 & 2 Antibody Non-Reactive (Non-Reactiv); HIV 1 & 2 Antigen Non-Reactive (Non-Reactiv)
[2022-06-17 06:24] LABS: Glucose Point of Care 155 mg/dL (70-110)
[2022-06-17] MEDS: budesonide 0.5 mg/2 mL Neb INHALATION (07:17)
[2022-06-17] MEDS: ipratropium-albuterol 3 mL Neb INHALATION (07:17)
[2022-06-17 07:20] VITALS: PULSE 85; RESP 16; O2SAT 93
[2022-06-17 07:21] VITALS: PULSE 85; RESP 18; O2SAT 93
[2022-06-17 07:35] VITALS: BP 136/89; PULSE 72; RESP 16; TEMP 36.4; O2SAT 96
[2022-06-17] MEDS: lamoTRIgine 100 mg Tablet 400 MG PO (08:16)
[2022-06-17] MEDS: losartan 50 mg Tablet 100 MG PO (08:17)
[2022-06-17] MEDS: amlodipine 10 mg Tablet PO (08:17)
[2022-06-17] MEDS: pantoprazole DR 40 mg Tablet PO (08:17)
[2022-06-17] MEDS: hydroCHLOROthiazide 25 mg Tablet PO (08:17)
[2022-06-17] MEDS: metoprolol tartrate 50 mg Tablet 150 MG PO (08:17)
[2022-06-17 10:56] LABS: Glucose Point of Care 146 mg/dL (70-110)
[2022-06-17 11:37] VITALS: O2SAT 87
[2022-06-17 11:40] VITALS: BP 149/77; PULSE 77; RESP 16; TEMP 36.8; O2SAT 92
--- NOTE | 2022-06-17 13:23 | PM.DCS ---
Discharge Providers Date of Admission: 06/15/22 19:27 Date of Discharge: June 17, 2022 Attending Provider at Admission: Marcela Garcais MD Attending Provider at Discharge: Marcela Garcias MD Primary Care Provider: Willy Marei Diagnoses at Discharge Discharge Diagnosis (1) Pneumonia: Status: Acute Qualifiers: Laterality: left Lung location: lower lobe of lung Pneumonia type: due to unspecified organism Qualified Code(s): J18.9 - Pneumonia, unspecified organism (2) Acute respiratory failure with hypoxia: Status: Acute (3) Obstructive sleep apnea (adult) (pediatric): Status: Acute (4) Tongue lesion: Status: Acute Reason for Visit Reason for Visit: low o2 Brief History: Daniel Sheffield is a 56 year old male presenting to the hospital with 2 weeks of worsening cough, expectoration, shortness of breath. He noted his oxygen saturation to be in the low 80s and presented into the emergency room.? He had a new oxygen requirement of 4 L/min.? Patient has a verrucous growth on his left side of the tongue for which she has been following with ENT.? This growth has been excised multiple times times, reportedly benign on biopsy, however keeps recurring and has grown recently in size.? Patient states that this growth has been obstructive and chunks of it have been falling off.? He suspects that he may have aspirated. He has had fever and chills at home.? He was tested for COVID-19 at the [place] recently, reportedly negative. Covid PCR here is still pending. Hospital Course Hospital Course Patient was treated with iv antibiotics for community acquired vs aspiration pneumonia. His white blood cell count has trended down from 17 to 9.8 today. Oxygen requirement has trended down from 4 L/min to 2 L/min which she is needing both at rest and with exertion. He has been afebrile and hemodynamically stable. He is being discharged today in stable to improved condition. Recommended to follow-up with his primary care provider in 1 week and keep his appointment with ENT at [facility]. Continue to wear CPAP at nighttime. Urine Legionella and bacterial antigens were negative.Sputum cx showed heavy normal kami. Physical Exam Narrative: General: No acute distress, AO x3 HEENT: PERRLA, pupils bilaterally equal and reactive, pallors not present Chest: Normal vesicular breath sounds, no added sounds CVS: S1-S2 regular, no murmurs, no tachycardia, no gallops, no rubs Abdomen: Soft, nontender, no organomegaly, bowel sounds present Neuro: No focal deficits, no facial deformity, AO x3, power 5/5 in all limbs Extremities: no edema, swelling or clubbing Discharge Data Studies Completed and Pending Completed Studies During Hospitalization Category Date Time Status CTA chest [CT angio chest PE protcl [id number]] Stat Cat Scan 06/15/22 13:23 Completed XR chest 1V portable [id number] Stat Exams 06/15/22 12:30 Completed Pending at discharge Category Date Time Status Blood Culture Stat Lab 06/15/22 13:15 Results [facility] SARS-CoV-2 RNA Routine Lab 06/15/22 20:00 Received Sputum Culture and Gram Stain Routine Lab 06/15/22 20:00 Results Radiology Impressions Chest X-Ray 06/15/22 12:30 IMPRESSION: Abnormalities in the lungs are of unknown chronicity but most likely acute/subacute. Congestive heart failure versus pneumonitis. Chest CTA 06/15/22 13:23 IMPRESSION: 1. No pulmonary embolism through the segmental branches. 2. LEFT lower lobe pneumonia. 3. Additional areas of groundglass attenuation are probably from edema or pneumonitis. 4. Reactive lymphadenopathy. 5. Hepatic steatosis. Laboratory Results WBC 9.6 10^3/uL (4.0-10.0) 06/17/22 04:57 RBC 4.91 10^6/uL (4.1-5.3) 06/17/22 04:57 Hgb 13.2 g/dL (11.7-16.6) 06/17/22 04:57 Hct 40.8 % (42.0-52.0) L 06/17/22 04:57 MCV 83.1 fl (80-94) 06/17/22 04:57 MCH 26.9 pg (28.0-34.0) L 06/17/22 04:57 MCHC 32.4 g/dL (30.0-36.0) D 06/17/22 04:57 RDW 15.7 % (12.1-15.1) H 06/17/22 04:57 Plt Count 487 10^3/cmm (130-400) H 06/17/22 04:57 MPV 8.4 fL (7.4-10.4) 06/17/22 04:57 Neut % (Auto) 61.8 % 06/17/22 04:57 Lymph % (Auto) 26.5 % 06/17/22 04:57 [place] % (Auto) 6.6 % 06/17/22 04:57 Eos % (Auto) 2.9 % 06/17/22 04:57 Baso % (Auto) 0.5 % 06/17/22 04:57 Neut # (Auto) 5.91 10^3/uL (1.8-7.7) 06/17/22 04:57 Lymph # (Auto) 2.5 10^3/uL (0.8-4.8) 06/17/22 04:57 [place] # (Auto) 0.6 10^3/uL (0.2-0.9) 06/17/22 04:57 Eos # (Auto) 0.3 10^3/uL (0.0-0.8) 06/17/22 04:57 Baso # (Auto) 0.1 10^3/uL (0.0-0.1) 06/17/22 04:57 Nucleated RBC % (auto) 0 % 06/17/22 04:57 Nucleated RBCs # 0.0 /100WBC 06/17/22 04:57 D-Dimer 1.16 ug/mIFEU (0-0.59) H 06/15/22 12:50 Sodium 141 mmol/L (136-145) 06/17/22 04:57 Potassium 3.4 mmol/L (3.5-5.1) L 06/17/22 04:57 Chloride 102 mmol/L (98-107) 06/17/22 04:57 Carbon Dioxide 28 mmol/L (22-29) 06/17/22 04:57 Anion Gap 14.4 (5-19) 06/17/22 04:57 BUN 24 mg/dL (6-20) H 06/17/22 04:57 Creatinine 1.0 mg/dL (0.7-1.2) 06/17/22 04:57 GFR Calculation 77.6 mL/min (90-130) L 06/17/22 04:57 Glucose 118 mg/dL (65-115) H 06/17/22 04:57 POC Glucose 146 mg/dL (70-110) H 06/17/22 10:49 Calculated Osmolality 297 mOsm/kg (285-295) H 06/17/22 04:57 Calcium 9.5 mg/dL (8.5-10.5) 06/17/22 04:57 Total Bilirubin 0.3 mg/dL (0.15-1.2) 06/17/22 04:57 AST 15 U/L (0-40) 06/17/22 04:57 ALT 14 U/L (0-41) 06/17/22 04:57 Alkaline Phosphatase 101 IU/L (40-130) 06/17/22 04:57 Troponin T Gen 5 ng/L 16 ng/L (0-15) H 06/15/22 12:50 C-Reactive Protein 76.7 mg/L (0.0-4.9) H 06/16/22 04:55 NT-Pro-B Natriuret Pep 59 pg/mL (0-125) 06/15/22 12:50 Total Protein 7.0 g/dL (6.6-8.7) 06/17/22 04:57 Albumin 3.5 g/dL (3.5-5.2) 06/17/22 04:57 Globulin 3.5 g/dL (1.3-4.6) 06/17/22 04:57 HIV 1&2 Ab & HIV 1 Ag Non-reactive (Non-Reactiv) 06/17/22 04:57 HIV 1&2 Antibody Non-reactive (Non-Reactiv) 06/17/22 04:57 Influenza Type A Ag Negative (Negative) 06/15/22 20:00 Influenza Type B Ag Negative (Negative) 06/15/22 20:00 SARS-CoV-2 Ag (Rapid) Negative (Negative) 06/15/22 Unknown Vitals Last Vital Signs Temp 98.3 F 06/17/22 11:40 Pulse 77 06/17/22 11:40 Resp 16 06/17/22 11:40 BP 149/77 06/17/22 11:40 Pulse Ox 92 06/17/22 11:40 O2 Del Method 06/17/22 11:40 O2 Flow Rate 2 06/17/22 11:37 Discharge Plan Discharge Patient Disposition: Home Condition: Stable Prescriptions: New azithromycin 250 mg tablet 250 mg PO DAILY 3 Days Qty: 3 0RF fluticasone propion-salmeterol [Advair Diskus] 500-50 mcg/dose blister with device 1 inh inhalation BID Qty: 60 0RF amoxicillin-pot clavulanate 875-125 mg tablet 1 tab PO Q12H 5 Days Qty: 10 0RF Continued glipizide 10 mg tablet 10 mg PO BID atorvastatin [Lipitor] 80 mg Tablet 40 mg PO QPM lamotrigine [Lamictal] 200 mg Tablet 400 mg PO QAM metoprolol tartrate 100 mg Tablet 150 mg PO BID amlodipine 10 mg Tablet 10 mg PO DAILY metformin 1,000 mg Tablet 500 mg PO BID gabapentin 300 mg Capsule 300 mg PO BEDTIME hydrochlorothiazide 25 mg Tablet 25 mg PO DAILY losartan 100 mg Tablet 100 mg PO DAILY quetiapine [Seroquel] 400 mg Tablet 600 mg PO BEDTIME cholecalciferol (vitamin D3) [Vitamin D3] 50 mcg (2,000 unit) Capsule 50 mcg PO DAILY empagliflozin 25 mg Tablet 12.5 mg PO DAILY hydroxyzine HCl 50 mg Tablet 50 mg PO BID PRN (Reason: Allergy Symptoms) Tylenol Ex Str Arthritis Pain 500 mg Tablet 1,000 mg PO Q6H PRN (Reason: Pain) Discharge Orders: Discharge Order (Routine); Ordered 06/17/22 Ordered By: Marcela Garcias Other Ambulatory Orders: DME: Oxygen (Order) Location: None Selected Ordered By: Marcela Garcias Referrals: Willy Marie [Primary Care Provider] - 1 week Patient Instructions: Opioid Safety Discharge Attestations Time Spent in Discharge Care*: greater than 30 min Quality Metrics Clinical Quality Measures [ No reported AMI, CVA or VTE this stay] Coding Level of Care Code Acute Chg FW DC note Diagnoses Pneumonia J18.9 Laterality: left Lung location: lower lobe of lung Pneumonia type: due to unspecified organism Acute respiratory failure with hypoxia J96.01 Obstructive sleep apnea (adult) (pediatric) G47.33 Tongue lesion K14.8
[2022-06-17 19:37] LABS: Quest SARS-CoV-2 RNA NOT DETECTED (NOT DETECTED)
== END 2022-06-17 17:14 | disposition home or self-care (01) | DRG 193 ==
LOC: ER 14:37 → MEDSURG 18:37
PROVIDERS: Admitting Provider Student in an Organized Health Care Education/Training Program; Emergency Provider Emergency Medicine; PCP Family Medicine; Visit Provider Student in an Organized Health Care Education/Training Program
DX: J18.9 Pneumonia, unspecified organism (principal); J96.01 Acute respiratory failure with hypoxia; G89.29 Other chronic pain; E11.9 Type 2 diabetes mellitus without complications; K21.9 Gastro-esophageal reflux disease without esophagitis; G47.33 Obstructive sleep apnea (adult) (pediatric); K14.8 Other diseases of tongue; Z79.84 Long term (current) use of oral hypoglycemic drugs
CPT/HCPCS: 36415; 36416; 71045; 71275; 80053; 82962; 83880; 84484; 85025; 85378; 86140; 86403; 87040; 87070; 87205; 87426; 87449; 87635; 87804; 87806; 93005; 94640; 94660; 94760; 96365; 96367; 96372; 99285; J0456; J0696; J1650; J7050; J7626; Q9967

== ENCOUNTER → 2023-05-28 09:27 | Outpatient (BNVA) | payer OTHER, SELFPAY | PROVIDERS: PCP Family Medicine; Visit Provider Podiatrist Foot & Ankle Surgery | DX: M72.2 Plantar fascial fibromatosis (principal); M76.61 Achilles tendinitis, right leg | CPT/HCPCS: 73630; 99204 ==

== ENCOUNTER → 2023-11-30 09:38 | Outpatient (BNVA) | payer OTHER, SELFPAY | PROVIDERS: PCP Family Medicine; Visit Provider Surgery | DX: Z12.11 Encounter for screening for malignant neoplasm of colon (principal) | CPT/HCPCS: 99204 ==

== ENCOUNTER 2024-01-31 09:38 | Day surgery (SDC) | payer OTHER, SELFPAY ==
--- NOTE | 2024-01-31 09:53 | W.PM.OPSFHP ---
Same Day Surgery H&P Indication for Procedure/HPI DATE OF PROCEDURE: January 31, 2024 CHIEF COMPLAINT/INDICATIONFOR SURGICAL PROCEDURE: need for screening colonoscopy PREOP DIAGNOSIS: need for screening colonoscopy PLANNED PROCEDURE: Operation Date: 01/31/24 10:40 Proposed Procedures p 22261 egd [id number] colon G0121 screen colon A risk(Not Applicable) - Daniel Miranda MD s Colonoscopy(Not Applicable) - Daniel Miranda MD Medications/Allergies* Home Medications Medication Instructions Recorded Confirmed Type amlodipine 10 mg tablet 10 mg PO DAILY 09/20/20 01/29/24 History atorvastatin 80 mg tablet (Lipitor) 40 mg PO QPM 09/20/20 01/29/24 History cholecalciferol (vitamin D3) 50 50 mcg PO DAILY 09/20/20 01/29/24 History mcg (2,000 unit) capsule (Vitamin D3) empagliflozin 25 mg tablet 12.5 mg PO DAILY 09/20/20 01/29/24 History gabapentin 300 mg capsule 300 mg PO BEDTIME 09/20/20 01/29/24 History hydrochlorothiazide 25 mg tablet 25 mg PO DAILY 09/20/20 01/29/24 History lamotrigine 200 mg tablet 400 mg PO QAM 09/20/20 01/29/24 History (Lamictal) losartan 100 mg tablet 100 mg PO DAILY 09/20/20 01/29/24 History metformin 1,000 mg tablet 500 mg PO BID 09/20/20 01/29/24 History metoprolol tartrate 100 mg tablet 150 mg PO BID 09/20/20 01/29/24 History quetiapine 400 mg tablet (Seroquel) 600 mg PO BEDTIME 09/20/20 01/29/24 History glipizide 10 mg tablet 10 mg PO BID 02/15/22 01/29/24 History Allergies/Adverse Reactions Allergy/AdvReac Type Severity Reaction Status Date / Time meperidine [From Demerol] Allergy ADR-Halluci Verified 11/30/23 09:39 nating Pertinent History/Comorbid Conditions* Medical History (Updated 06/15/22 @ 15:32 by Cristian Acosta MD) Chronic pain Allergic rhinitis Tongue lesion GERD (gastroesophageal reflux disease) Sleep apnea Diabetes mellitus Surgical History (Updated 02/15/22 @ 10:52 by Lux Eisenberg MD) History of hernia repair Family History (Updated 02/15/22 @ 10:50 by Dayana Mclean MA) Diabetes Hypertension Social History Smoking and tobacco/nicotine status: never used tobacco/nicotine Alcohol intake: never Substance/Drug Use: never Pertinent Exam Findings alert and oriented x 3 Recommendations Surgery/Procedure today Coding Level of Care Code Acute Code for Leticia Trujillo
[2024-01-31 10:05] VITALS: BP 156/83; PULSE 68; RESP 18; TEMP 36.5; O2SAT 96; BMI 45.9
[2024-01-31] MEDS: sodium chloride 0.9% 1,000 ML 30 ML IV (10:20)
[2024-01-31 10:27] LABS: Glucose Point of Care 121 mg/dL (70-110)
--- NOTE | 2024-01-31 10:50 | ANES.PREANE2 ---
Pre-Anesthetic Assessment Height/Weight: Height 1.78 m Weight 145.15 kg Temp Pulse Resp BP Pulse Ox O2 Del Method 97.7 F 68 18 156/83 96 Room Air 01/31/24 10:05 01/31/24 10:05 01/31/24 10:05 01/31/24 10:05 01/31/24 10:05 01/31/24 10:05 Preop Diagnosis: need for screening colonoscopy Operation Date: 01/31/24 10:40 Proposed Procedures p [id number] egd [id number] colon G0121 screen colon A risk(Not Applicable) - Daniel Miranda MD s Colonoscopy(Not Applicable) - Daniel Miranda MD Familial anesthetic complications: post op nausea Was Beta Radha taken within 24 hours: Yes Was Clonidine taken within 24 hours: N/A Last intake: Intake Last Liquid Date 01/30/24 Last Liquid Time 20:00 Last Solid Date 01/29/24 Last Solid Time 18:30 Social No alcohol and No tobacco Exam alert, oriented x 3, clear to auscultation bilaterally and regular rate & rhythm Airway Submandibular: within normal limits Cervical ROM: within normal limits Mallampati: Class III Dentition: full Pulmonary Sleep Apnea CV/HEM Hypertension None reported Hepatic None reported GI Gastroesophageal Reflux Disease Metabolic Diabetes Mellitus, Hyperlipidemia and Morbid Obesity Musc/skel Osteoarthritis/DJD Neuropsych Anxiety, Bipolar, Depression and Seizure (abscence Long time ago) Anesthetic Plan ASA status: 3 Anesthesia: MAC Risk of > 500 ml blood loss (7ml/kg in children): Yes, adequate IV access and fluids planned Medications/Allergies Home Medications Medication Instructions Recorded Confirmed Last Taken Type amlodipine 10 mg tablet 10 mg PO DAILY 09/20/20 01/31/24 01/30/24 History atorvastatin 80 mg tablet (Lipitor) 40 mg PO QPM 09/20/20 01/31/24 01/30/24 History cholecalciferol (vitamin D3) 50 50 mcg PO DAILY 09/20/20 01/31/24 01/30/24 History mcg (2,000 unit) capsule (Vitamin D3) empagliflozin 25 mg tablet 12.5 mg PO DAILY 09/20/20 01/31/24 01/30/24 History gabapentin 300 mg capsule 300 mg PO BEDTIME 09/20/20 01/31/24 01/30/24 History hydrochlorothiazide 25 mg tablet 25 mg PO DAILY 09/20/20 01/31/24 01/30/24 History lamotrigine 200 mg tablet 400 mg PO QAM 09/20/20 01/31/24 01/30/24 History (Lamictal) losartan 100 mg tablet 100 mg PO DAILY 09/20/20 01/31/24 01/30/24 History metformin 1,000 mg tablet 500 mg PO BID 09/20/20 01/31/24 01/30/24 History metoprolol tartrate 100 mg tablet 150 mg PO BID 09/20/20 01/31/24 01/30/24 History quetiapine 400 mg tablet (Seroquel) 600 mg PO BEDTIME 09/20/20 01/31/24 01/30/24 History glipizide 10 mg tablet 10 mg PO BID 02/15/22 01/31/24 01/30/24 History fluticasone 500 mcg-salmeterol 50 1 inh inhalation BID #60 ea 06/17/22 01/31/24 01/30/24 Rx mcg/dose blistr powdr for inhalation (Advair Diskus) Allergies Allergy/AdvReac Type Severity Reaction Status Date / Time meperidine [From Demerol] Allergy ADR-Halluci Verified 11/30/23 09:39 nating Current Medications Generic Name Dose Route Start Last Admin Trade Name Freq PRN Reason Stop Dose Admin Sodium Chloride 1,000 mls @ 30 mls/hr 01/31/24 10:00 01/31/24 10:20 Sodium Chloride 0.9% IV 02/01/24 09:59 30 mls/hr .Q24H BRINA Administration PFSH Anesthesia Medical History Chronic pain Allergic rhinitis Tongue lesion GERD (gastroesophageal reflux disease) Sleep apnea Diabetes mellitus Surgical History History of hernia repair Family History Other Diabetes Hypertension Social History (Updated 11/30/23 @ 09:58 by Uyen Lima) Smoking and tobacco/nicotine status: never used tobacco/nicotine Alcohol intake: never Substance/Drug Use: never Data Anesthesia Cardiac Studies: No Data to Display
[2024-01-31 11:46] VITALS: BP 128/81; PULSE 66; RESP 12; TEMP 36.3; O2SAT 96
[2024-01-31 12:24] VITALS: BP 132/76; PULSE 66; RESP 16; O2SAT 96
--- NOTE | 2024-01-31 12:30 | ANE.PACU2 ---
Inpatient post-anesthesia follow up: Airway intact: Yes Vital signs: Temperature 97.3 F Pulse Rate 66 Respiratory Rate 16 Blood Pressure 132/76 Pulse Oximetry 96 Oxygen Delivery Me thod Room Air Oxygen Flow Rate 3 Fraction of Inspir ed Oxygen Hydration adequate: Yes Nausea and vomiting: No Pain level: 1 Mental status: Baseline
== END 2024-01-31 12:30 | disposition home or self-care (01) ==
PROVIDERS: PCP Family Medicine; Visit Provider Surgery
PROC: 0DJ08ZZ Inspection of Upper Intestinal Tract, Via Natural or Artificial Opening Endoscopic (ICD-10-PCS; CPT 43235; principal; 2024-01-31 10:40)
PROC: 0DJD8ZZ Inspection of Lower Intestinal Tract, Via Natural or Artificial Opening Endoscopic (ICD-10-PCS; CPT 45378; 2024-01-31 10:40)
DX: Z12.11 Encounter for screening for malignant neoplasm of colon (principal); D12.5 Benign neoplasm of sigmoid colon; D12.8 Benign neoplasm of rectum; K29.50 Unspecified chronic gastritis without bleeding; K21.9 Gastro-esophageal reflux disease without esophagitis; G47.30 Sleep apnea, unspecified; E11.9 Type 2 diabetes mellitus without complications; Z79.84 Long term (current) use of oral hypoglycemic drugs; E66.01 Morbid (severe) obesity due to excess calories; Z68.42 Body mass index [BMI] 45.0-49.9, adult
CPT/HCPCS: 36416; 45380; 45385; 82962; 88305; 88342; J2704; J7030

== ENCOUNTER → 2024-03-05 09:10 | Outpatient (BNVA) | payer OTHER, SELFPAY | PROVIDERS: PCP Family Medicine; Visit Provider Surgery | DX: A04.8 Other specified bacterial intestinal infections (principal); Z09 Encounter for follow-up examination after completed treatment for conditions other than malignant neoplasm | CPT/HCPCS: 99213 ==

== ENCOUNTER 2024-04-08 11:02 | Outpatient (CLI) | payer OTHER, SELFPAY | END 2024-04-08 11:03 | disposition home or self-care (01) | PROVIDERS: PCP Family Medicine; Visit Provider Surgery | DX: A04.8 Other specified bacterial intestinal infections (principal) | CPT/HCPCS: 87338 ==

== ENCOUNTER → 2024-06-17 11:10 | Outpatient (BNVA) | payer OTHER, SELFPAY | PROVIDERS: PCP Family Medicine; Visit Provider Internal Medicine Cardiovascular Disease | DX: R00.2 Palpitations (principal); I49.1 Atrial premature depolarization; I49.3 Ventricular premature depolarization; I47.10 Supraventricular tachycardia, unspecified; I49.8 Other specified cardiac arrhythmias; R00.1 Bradycardia, unspecified | CPT/HCPCS: 93246 ==

== ENCOUNTER 2024-07-24 08:43 | Outpatient (CLI) | payer OTHER, SELFPAY ==
--- NOTE | 2024-07-24 | ECG_ITS ---
[facility] Test Date: 2024-07-24 Pat Name: Daniel Sheffield Department: Room: Gender: Male Gi Technician: : 1965 Requested By: Viri Mabry Order Number: [id number] Reading : Interpretive Statements Lung unchanged pre/post procedure; Intraprocedure shortess of breath; Symptoms resoled by discharge [email or web address]
[2024-07-24 09:04] VITALS: BMI 44.7
--- NOTE | 2024-07-24 09:07 | NMCV_ITS ---
NM lopez perf SPECT r/s* [id number] Daniel Sheffield Age: 58 Gender: M : 1965 Exam Date: 07/24/2024 09:07 Ordering Phys: Viri Mabry MD Technologist: GIORGIO Wilkerson Exam Location: [facility] Indications: CP, SOB STRESS TEST Please see separate stress test report in [facility] for full findings IMAGE PROTOCOL Rest/Stress 1 Lexiscan Day Radiopharmaceutical Dose (mCi) Administration Site Administered by Rest: Tc-99m 10.7 IV GIORGIO Wilkerson Sestamibi Stress:Tc-99m 30.5 IV GIORGIO Olivares Sestamibi Rest: 24-Jul-2024 60 Discovery 630 Stress: 24-Jul-2024 30 Discovery 630 0.4mg Lexiscan. Images obtained in supine and prone position. SPECT RESULTS Technical Quality: Good Raw Data Analysis: Normal Image Corrections: No attenuation or motion correction applied Summed Stress Score: 1 Summed Rest Score: 1 Summed Difference Score: 1 PERFUSION FINDINGS Large area of patchy reduced tracer uptake noted in basal to mid inferior wall on the rest images which improved moderately on stress images suggestive of old myocardial infarction versus artifact, medium sized area of moderately reduced tracer uptake noted on the rest images which improved significantly with stress images suggestive of artifact FUNCTIONAL RESULTS (calculated via Gated SPECT) Stress Image LV EF (%): 55 Stress EDV (mL):176 TID: 0.92 Stress ESV (mL):80 FUNCTIONAL FINDINGS: There is normal left ventricular systolic function. IMPRESSIONS Myocardial perfusion imaging is not suggestive of ischemia Celeste Scruggs MD (Electronically Signed) Final Date: 25 July 2024 18:00 S
[2024-07-24] MEDS: regadenoson 0.4 Mg/5 ml Syringe IVP (10:27)
[2024-07-24] MEDS: ondansetron 2 mg/ML SDV 2 mL 4 MG IVP (10:33)
[2024-07-24 10:42] VITALS: BP 127/76; PULSE 72
== END 2024-07-24 08:44 | disposition home or self-care (01) ==
PROVIDERS: PCP Family Medicine; Visit Provider Family Medicine
DX: R07.9 Chest pain, unspecified (principal); R06.02 Shortness of breath
CPT/HCPCS: 78452; 93017; A9500; J2405; J2785

== ENCOUNTER 2024-08-12 08:45 | Outpatient (CLI) | payer OTHER, SELFPAY ==
--- NOTE | 2024-08-12 08:51 | USCV_ITS ---
Daniel Sheffield Age: 58 Gender: M : 1965 Exam Date: 08/12/2024 09:04 Ordering Phys: Viri Mabry MD Technologist: [place] [facility] [place] Indication: cardiomegaly BP: 142 / 94 HR: 73 Rhythm: Sinus Technical Quality: Adequate MEASUREMENTS (Male / Female) Normal Values 2D ECHO LVOT Diameter 2.1 cm LV Ejection Fraction MOD 4C 64.5 % LV Ejection Fraction MOD 2C 59.8 % LV Ejection Fraction 2C AL 61.5 % LA Diameter 3.9 cm RA Systolic Volume 4C AL 64.2 ml RA Systolic Volume 4C MOD 61.7 ml LA Sys Volume AL 71.5 cm cubed LA Sys Volume Index AL 25.9 cm cubed/m squared Aorta at Sinotubular Diameter 2.9 cm M-MODE LA Ao Ratio MM 1.5 AV Cusp Separation MM 2.0 cm DOPPLER AV Peak Velocity 159.0 cm/s LVOT Peak Velocity 114.0 cm/s AV Area Cont Eq vti 2.6 cm squared AV Area Cont Eq pk 2.6 cm squared MV Peak Velocity 98.0 cm/s MV Area PHT 3.5 cm squared Mitral E to A Ratio 1.3 TR Peak Velocity 296.0 cm/s TR Peak Gradient 35.0 mmHg TR Mean Velocity 198.0 cm/s TR Mean Gradient 18.6 mmHg TR Velocity Time Integral 85.9 cm TV Peak E Velocity 59.0 cm/s Right Atrial Pressure 3.0 mmHg Pulmonary Artery Systolic Pressu 38.0 mmHg PV Peak Velocity 123.5 cm/s FINDINGS Left Ventricle Normal left ventricular size, systolic function and wall thickness, with no regional wall motion abnormalities. Left ventricular ejection fraction is estimated at 60%. Grade II/IV diastolic dysfunction, moderately elevated filling pressures. Right Ventricle The right ventricle is normal in size and function. Right Atrium The right atrium is normal in size. Left Atrium The left atrium is normal in size. Mitral Valve Thickened mitral valve. No mitral valve stenosis. Mild mitral valve regurgitation. Aortic Valve Moderate aortic valve calcification. No aortic valve stenosis. Trace aortic valve regurgitation. Tricuspid Valve Structurally normal tricuspid valve without significant stenosis or regurgitation. Pulmonary artery systolic pressure is normal. Pulmonic Valve Structurally normal pulmonic valve without significant stenosis. There is no pulmonic regurgitation. Pericardium Normal pericardium without effusion. Aorta Normal ascending aorta dimension. IVC The inferior vena cava appears normal. CONCLUSIONS Normal left ventricular size, systolic function and wall thickness, with no regional wall motion abnormalities. Left ventricular ejection fraction is estimated at 60%. Grade II/IV diastolic dysfunction, moderately elevated filling pressures. Thickened mitral valve. No mitral valve stenosis. Mild mitral valve regurgitation. Moderate aortic valve calcification. No aortic valve stenosis. Trace aortic valve regurgitation. There is no pericardial effusion. Pulmonary artery systolic pressure is within normal limits. Right atrial pressure is around 5 mm of mercury. Celeste Scruggs MD (Electronically Signed) Final Date: 12 August 2024 13:33 S
== END 2024-08-12 08:47 | disposition home or self-care (01) ==
PROVIDERS: PCP Family Medicine; Visit Provider Family Medicine
DX: I50.30 Unspecified diastolic (congestive) heart failure (principal); I70.0 Atherosclerosis of aorta
CPT/HCPCS: 93306

== ENCOUNTER 2024-08-23 10:35 | Emergency (ER) | payer OTHER, SELFPAY ==
--- NOTE | 2024-08-23 10:36 | XRR_ITS ---
PROCEDURE INFORMATION: Exam: XR Left Ankle Exam date and time: 08/23/2024 11:44 AM Age: 58 years old Clinical indication: Injury or trauma; Other: Lt ankle/foot pain; Blunt trauma; Ankle and foot; Left; Additional info: Pain to top of left foot/near base of ankle after blunt trauma TECHNIQUE: Imaging protocol: Radiologic exam of the left ankle. Views: 3 or more views. COMPARISON: CR XR ankle LT min 3V* [id number] 04/01/2019 4:26 PM FINDINGS: Bones/joints: Achilles enthesopathy. Prominent plantar calcaneal spur. Normal alignment at the ankle mortise. Normal talar dome. Mild degenerative change at the ankle mortise. No fracture is radiographically apparent. Soft tissues: Dorsal soft tissue swelling overlying the partial bones. XR/XR ankle LT min 3V* [id number] IMPRESSION: 1. No radiographically apparent acute osseous injury or malalignment. 2. Dorsal soft tissue swelling overlying the tarsal bones. 3. Mild degenerative changes, Achilles enthesopathy and plantar calcaneal spur.
--- NOTE | 2024-08-23 10:36 | XRR_ITS ---
PROCEDURE INFORMATION: Exam: XR Left Foot Exam date and time: 08/23/2024 11:44 AM Age: 58 years old Clinical indication: Foot and heel; Patient HX: Pain to top of left foot/near base of ankle after blunt trauma TECHNIQUE: Imaging protocol: Radiologic exam of the left foot. Views: 3 or more views. COMPARISON: [place] [id number] ORTH 05/28/2023 9:30 AM FINDINGS: Bones/joints: On the frontal view there is oblique lucency suggested along the base of the 3rd and 4th metatarsals laterally however this appears to correlate with normal osseous variation with cortical ridges on the oblique view. Achilles enthesopathy and plantar calcaneal spur. Normal alignment joint space throughout. No acute fracture is radiographically apparent. No aggressive osseous lesion. Soft tissues: There is dorsal soft tissue swelling overlying the foot. XR/XR foot LT min 3V* [id number] IMPRESSION: 1. Dorsal soft tissue swelling of the foot without definitive underlying fracture. 2. Questionable lucency at the base of the 3rd and 4th metatarsals likely representing a normal variant cortical ridge. If clinical symptoms directly correlate at this site CT may be needed to clarify. 3. Mild degenerative changes, plantar spur and Achilles enthesopathy.
[2024-08-23 11:22] VITALS: BP 140/81; PULSE 78; RESP 16; TEMP 36.7; O2SAT 95
--- NOTE | 2024-08-23 12:29 | ED_ITS ---
HPI - Extremity Problem General: Chief complaint: Extremity Injury, Lower Stated complaint: LT foot Inj Time Seen by Provider: 08/23/24 12:22 Source: patient Mode of arrival: ambulatory Limitations: no limitations History of Present Illness: 58-year-old male states he tripped in [facility] driveway yesterday injured his left foot states he has pain to the top of his foot. He has been able ambulate but it is painful rates his pain a 6 out of 10 denies any other injuries when he fell. Associated symptoms: Deny chest pain, fever(s) or rash Related Data Home Medications Medication Instructions Recorded Confirmed amlodipine 10 mg tablet 10 mg PO DAILY 09/20/20 03/05/24 atorvastatin 80 mg tablet (Lipitor) 40 mg PO QPM 09/20/20 03/05/24 cholecalciferol (vitamin D3) 50 50 mcg PO DAILY 09/20/20 03/05/24 mcg (2,000 unit) capsule (Vitamin D3) empagliflozin 25 mg tablet 12.5 mg PO DAILY 09/20/20 03/05/24 gabapentin 300 mg capsule 300 mg PO BEDTIME 09/20/20 03/05/24 hydrochlorothiazide 25 mg tablet 25 mg PO DAILY 09/20/20 03/05/24 lamotrigine 200 mg tablet 400 mg PO QAM 09/20/20 03/05/24 (Lamictal) losartan 100 mg tablet 100 mg PO DAILY 09/20/20 03/05/24 metformin 1,000 mg tablet 500 mg PO BID 09/20/20 03/05/24 metoprolol tartrate 100 mg tablet 150 mg PO BID 09/20/20 03/05/24 quetiapine 400 mg tablet (Seroquel) 600 mg PO BEDTIME 09/20/20 03/05/24 glipizide 10 mg tablet 10 mg PO BID 02/15/22 03/05/24 Previous Rx's Medication Instructions Recorded fluticasone 500 mcg-salmeterol 50 1 inh inhalation BID #60 ea 06/17/22 mcg/dose blistr powdr for inhalation (Advair Diskus) pantoprazole 40 mg tablet,delayed 40 mg PO BID #120 tabs 01/31/24 release amoxicillin 875 mg tablet 875 mg PO BID 2 weeks #28 tabs 03/05/24 clarithromycin 500 mg tablet 500 mg PO BID 2 weeks #28 tabs 03/05/24 pantoprazole 40 mg tablet,delayed 40 mg PO BID 2 weeks #28 tabs 03/05/24 release Allergies Allergy/AdvReac Type Severity Reaction Status Date / Time meperidine [From Demerol] Allergy ADR-Halluci Verified 03/05/24 09:25 lester Review of Systems Const: Denies: fever(s), chills, body aches or change in appetite ENMT: Denies: throat pain or dental pain Card: Denies: chest pain Resp: Denies: dyspnea GI: Denies: abdominal pain, nausea, vomiting or diarrhea Musc: Reports: extremity pain; Denies: neck pain or back pain Skin/Breast: Denies: rash Neuro: Denies: headache(s) PFSH ED PFSH: Medical History Chronic pain Allergic rhinitis Tongue lesion GERD (gastroesophageal reflux disease) Sleep apnea Diabetes mellitus Surgical History History of hernia repair Family History Other Diabetes Hypertension Social History Smoking and tobacco/nicotine status: former use of tobacco/nicotine Alcohol intake: never Substance/Drug Use: never Physical Exam Const: COMMON NORMALS: no acute distress, patient oriented x3 and healthy appearing HENMT: COMMON NORMALS: normocephalic and atraumatic HEAD & SCALP: normocephalic and atraumatic Eye: COMMON NORMALS: conjunctivae normal CONJUNCTIVA: Yes conjunctivae normal Neck/C-Spine: COMMON NORMALS: full ROM and supple Chest: COMMONS NORMALS: normal inspection of the chest Resp: COMMON NORMALS: normal respiratory effort Cardio: COMMON NORMALS: regular rate and regular rhythm RATE: regular rate RHYTHM: regular rhythm Extremity: COMMON NORMALS: full ROM NARRATIVE EXTREMITY EXAM: Tenderness to dorsum of foot no obvious deformity Neuro: COMMON NORMALS: patient oriented x3, moves all extremities and no focal motor deficits Psych: COMMON NORMALS: mental status grossly normal, Normal thought process present and cooperative THOUGHT PROCESS: Normal thought process present Skin: COMMON NORMALS: no rashes or lesions noted and no wounds GENERAL SKIN EXAM: no rashes or lesions noted Course Vital Signs: Vital signs: Vital Signs Temperature 98.1 F 08/23/24 11:22 Pulse Rate 64 08/23/24 12:44 Respiratory Rate 19 H 08/23/24 12:44 Blood Pressure 133/78 08/23/24 12:44 Pulse Oximetry 95 08/23/24 12:44 Oxygen Delivery Me thod Room Air 08/23/24 12:44 MDM - Extremity (Nontraumatic) Medical Decision Making Patient presents here with foot contusion x-ray shows no fractures patient stable for discharge follow-up PCP return if worsening. Medical Records I reviewed the patient's medical records. Lab Data Radiology Impressions Ankle X-Ray 08/23/24 10:36 IMPRESSION: 1. No radiographically apparent acute osseous injury or malalignment. 2. Dorsal soft tissue swelling overlying the tarsal bones. 3. Mild degenerative changes, Achilles enthesopathy and plantar calcaneal spur. Foot X-Ray 08/23/24 10:36 IMPRESSION: 1. Dorsal soft tissue swelling of the foot without definitive underlying fracture. 2. Questionable lucency at the base of the 3rd and 4th metatarsals likely representing a normal variant cortical ridge. If clinical symptoms directly correlate at this site CT may be needed to clarify. 3. Mild degenerative changes, plantar spur and Achilles enthesopathy. XR interpretation done by ED provider, pending radiology final review ED provider radiology interpretation(s): xt L foot and ankle: no acute fx Discharge Plan Discharge Patient Disposition: Home Clinical Impression: Contusion of foot, left Condition: Stable Prescriptions: No Action glipizide 10 mg tablet 10 mg PO BID pantoprazole 40 mg tablet,delayed release (DR/EC) 40 mg PO BID 14 Days Qty: 28 0RF clarithromycin 500 mg tablet 500 mg PO BID 14 Days Qty: 28 0RF amoxicillin 875 mg tablet 875 mg PO BID 14 Days Qty: 28 0RF atorvastatin [Lipitor] 80 mg Tablet 40 mg PO QPM lamotrigine [Lamictal] 200 mg Tablet 400 mg PO QAM metoprolol tartrate 100 mg Tablet 150 mg PO BID amlodipine 10 mg Tablet 10 mg PO DAILY metformin 1,000 mg Tablet 500 mg PO BID gabapentin 300 mg Capsule 300 mg PO BEDTIME hydrochlorothiazide 25 mg Tablet 25 mg PO DAILY losartan 100 mg Tablet 100 mg PO DAILY quetiapine [Seroquel] 400 mg Tablet 600 mg PO BEDTIME cholecalciferol (vitamin D3) [Vitamin D3] 50 mcg (2,000 unit) Capsule 50 mcg PO DAILY empagliflozin 25 mg Tablet 12.5 mg PO DAILY fluticasone propion-salmeterol [Advair Diskus] 500-50 mcg/dose blister with device 1 inh inhalation BID Qty: 60 0RF pantoprazole 40 mg tablet,delayed release (DR/EC) 40 mg PO BID Qty: 120 0RF Discharge Orders: Discharge ED (Routine); Ordered 08/23/24 Ordered By: Cristian Acosta Referrals: Viri Mabry MD [Primary Care Provider] - Discharge Diet: Advance as tolerated Discharge Activity: Resume usual activity Patient Instructions: Foot Sprain (ED) Coding Level of Care Code ED All Source Analyst for Leticia Trujillo
[2024-08-23 12:44] VITALS: BP 133/78; PULSE 64; RESP 19; O2SAT 95
[2024-08-23] MEDS: HYDROcodone-acetaminophen 5-325 mg Tablet 1 TAB PO (13:01)
[2024-08-23 13:06] VITALS: BP 135/81; PULSE 62; O2SAT 96
== END 2024-08-23 13:07 | disposition home or self-care (01) ==
PROVIDERS: Emergency Provider Emergency Medicine; PCP Family Medicine
DX: S90.32XA Contusion of left foot, initial encounter (principal); Z79.84 Long term (current) use of oral hypoglycemic drugs; Z87.891 Personal history of nicotine dependence; E11.9 Type 2 diabetes mellitus without complications; W18.40XA Slipping, tripping and stumbling without falling, unspecified, initial encounter
CPT/HCPCS: 73610; 73630; 99283

== ENCOUNTER → 2024-08-29 10:33 | Outpatient (BNVA) | payer OTHER, SELFPAY | PROVIDERS: PCP Family Medicine; Referring Provider Family Medicine; Visit Provider Internal Medicine Cardiovascular Disease | DX: I49.8 Other specified cardiac arrhythmias (principal); R07.9 Chest pain, unspecified; R94.31 Abnormal electrocardiogram [ECG] [EKG]; I10 Essential (primary) hypertension; E11.69 Type 2 diabetes mellitus with other specified complication; E78.5 Hyperlipidemia, unspecified; E66.9 Obesity, unspecified; Z87.891 Personal history of nicotine dependence; Z68.41 Body mass index [BMI] 40.0-44.9, adult | CPT/HCPCS: 93005; 99204 ==

== ENCOUNTER 2024-09-05 06:15 | Outpatient (CLI) | payer OTHER, SELFPAY ==
--- NOTE | 2024-09-05 06:18 | USCV_ITS ---
Daniel Sheffield Age: 58 Gender: M : 1965 Exam Date: 09/05/2024 06:23 Ordering Phys: Viri Mabry MD Technologist: CARLI [place] [facility] [place]: Stenosis Risk Factors: Previous Vascular Surgery: Right Brachial BP: / Left Brachial BP: / Right Left Velocity (cm/s) Spectral Plaque Velocity (cm/s) Spectral Plaque Syst/Diast Broadening Syst/Diast Broadening 79.90/ 13.60 Prox CCA 82.80 / 17.10 75.80/ 14.80 Mid CCA 79.50 / 17.00 75.70/ 16.60 Distal CCA 51.00 / 15.20 38.90/ 6.80 Prox ICA 50.30 / 8.70 36.10/ 11.80 Mid ICA 59.00 / 15.20 64.40/ 20.80 Distal ICA 45.90 / 14.10 65.50 ECA 79.30 0.90 ICA/CCA 1.20 Antegrade Vertebral Antegrade 41.20/ 13.40 cm/s 48.10/ 11.90 cm/s Tri Subclavian Bi 84.30 133.1 0 FINDINGS Comparison: none available. No significant elevation of systolic or diastolic velocities. Waveforms are normal. No significant amount of calcified plaque or intimal thickening identified. CONCLUSIONS Normal carotid doppler ultrasound. Dr. Asya Basurto DO (Electronically Signed) Final Date: 05 September 2024 08:02 S
== END 2024-09-05 06:16 | disposition home or self-care (01) ==
PROVIDERS: PCP Family Medicine; Visit Provider Family Medicine
DX: I65.23 Occlusion and stenosis of bilateral carotid arteries (principal)
CPT/HCPCS: 93880

== ENCOUNTER → 2025-01-26 08:01 | Outpatient (BNVA) | payer OTHER, SELFPAY | PROVIDERS: PCP Family Medicine; Referring Provider Family Medicine; Visit Provider Specialist | DX: G31.84 Mild cognitive impairment of uncertain or unknown etiology (principal); G43.711 Chronic migraine without aura, intractable, with status migrainosus | CPT/HCPCS: 36415; 82542; 83520; 85651; 99205 ==

== ENCOUNTER → 2025-05-27 08:09 | Outpatient (BNVA) | payer OTHER, SELFPAY | PROVIDERS: PCP Family Medicine; Referring Provider Family Medicine; Visit Provider Specialist | DX: G31.84 Mild cognitive impairment of uncertain or unknown etiology (principal); F07.81 Postconcussional syndrome; G47.33 Obstructive sleep apnea (adult) (pediatric) | CPT/HCPCS: 99214 ==

== ENCOUNTER 2025-09-07 08:33 | Outpatient (CLI) | payer OTHER, SELFPAY ==
--- NOTE | 2025-09-07 08:55 | NM_ITS ---
WS: [id number] NUCLEAR MEDICINE HIDA SCAN CLINICAL INFORMATION: RUQ PAIN TECHNIQUE: Following intravenous administration of 7.9 mCi of technetium 99m mebrofenin, images of the abdomen were obtained over the course of 60 minutes. Next, gallbladder ejection fraction was determined by obtaining preprandial and one-hour postprandial images of the gallbladder following oral ingestion of Ensure. COMPARISON: None. FINDINGS: Hepatomegaly. Coarse hepatic radiotracer uptake. Focal area of decreased uptake LEFT hepatic lobe may represent a small hepatic cyst. This can followed up with ultrasound or contrast-enhanced CT abdomen pelvis. No recent hepatic imaging. Normal hepatic excretion. Normal common bile duct and small bowel activity. Gallbladder is visualized by 60 minutes. No evidence of acute cholecystitis. Gallbladder ejection fraction 47% within normal limits. NM/NM hepatobiliary w phar* [id number] IMPRESSION: 1. No evidence of acute or chronic cholecystitis. 2. Gallbladder ejection fraction 47% within normal limits. 3. Hepatomegaly with coarse hepatic radiotracer uptake. Recommend correlation with liver function tests. 4. Focal area of decreased radiotracer activity LEFT hepatic lobe nonspecific but may represent a hepatic cyst FNH or hemangioma. Recommend liver ultrasound or contrast-enhanced CT abdomen pelvis. No recent hepatic imaging.
== END 2025-09-07 08:34 | disposition home or self-care (01) ==
LOC: RAD 08:38
PROVIDERS: PCP Family Medicine; Visit Provider Nurse Practitioner Family
DX: R10.11 Right upper quadrant pain (principal); R16.0 Hepatomegaly, not elsewhere classified
CPT/HCPCS: 78227; A9537

== ENCOUNTER 2025-09-08 07:47 | Outpatient (CLI) | payer OTHER, SELFPAY ==
--- NOTE | 2025-09-08 07:54 | US_ITS ---
WS: [id number] Complete ABDOMINAL ULTRASOUND HISTORY: ABD PAIN W/BLOATING GAS COMPARISON: HIDA scan 09/07/2025 Liver: 19.2 cm in length. Liver is enlarged and heterogeneous. Focal areas of fatty sparing adjacent to the gallbladder. No mass identified. Portal Vein: Normal hepatopetal flow with monophasic waveform. Gallbladder: Normally distended gallbladder with no stones or wall thickening. CBD: 0.3 cm Pancreas: Not visualized. Right kidney: 11.9 cm x 7.2 x 6.4 cm. Cortex:1.8 cm. Normal size and echogenicity. No hydronephrosis or mass. Left kidney: 12.4 cm x 5.7 cm x 6.9 cm. Cortex: 2.1 cm. Normal size and echogenicity. No hydronephrosis or mass. Simple cyst mid lateral kidney 1.8 x 1.7 x 1.9 cm. Spleen: 11.2 cm. Normal size and echogenicity. Aorta and IVC: Unremarkable abdominal aorta and IVC. US/US abdomen complete* [id number] Impression: 1. Negative gallbladder. 2. Moderate hepatomegaly with hepatic steatosis. Focal areas of fatty sparing identified. No hepatic mass identified. 3. Pancreas not visualized. 4. No renal obstruction. 5. Simple LEFT renal cyst 1.9 cm.
== END 2025-09-08 07:48 | disposition home or self-care (01) ==
PROVIDERS: PCP Family Medicine; Visit Provider Nurse Practitioner Family
DX: Z01.89 Encounter for other specified special examinations (principal); R16.0 Hepatomegaly, not elsewhere classified; K76.0 Fatty (change of) liver, not elsewhere classified; N28.1 Cyst of kidney, acquired
CPT/HCPCS: 76700